=== PATIENT | male | born 1975 | race Caucasian/White ===

== ENCOUNTER 2017-01-17 15:19 | Observation (INO) | payer SELFPAY ==
[~2017-01-17] VITALS: Ht 188 cm; Wt 100.0 kg
[~2017-01-17 15:19] MED LIST: BACT800T5 PO; NICO21DI2 TD; PERC10TA27 PO
[2017-01-17 15:27] VITALS: BP 142/89; PULSE 112; RESP 20; TEMP 99.4; O2SAT 97
[2017-01-17] MEDS ORDERED: SODIUM CHLOR 0.9% 1000 ML INJ 1,000 ML IV ONE (15:27)
[2017-01-17 15:30] VITALS: O2SAT 97
[2017-01-17] MEDS ORDERED: SODIUM CHLORIDE 0.9% FLUSH 10 ML FLUSH IVF PRN (15:30)
--- NOTE | 2017-01-17 15:36 | PD ---
HPI Chief Complaint: seizure Time Seen by Provider: 15:29 Travel History International Travel<30 days: No Contact w/Intl Traveler<30days: No History of Present Illness HPI Patient comes in by EMS after reported witnessed seizure. 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 Patient was reported to be post ictal by EMS that has since resolved. Patient was found to have a temperature on seen of 101 and tachycardic on scene was given IV fluids by EMS. Patient denies any pain anywhere pre- or post reported seizure. Patient states he had something similar happen couple years ago after working out in the heat for to long. Patient denies ever seeing a neurologist for this. Denies any chest pain, shortness breath, headache, change in vision, nausea or tingling anywhere, abdominal pain, loss change in bowel or bladder, dizziness, or known fevers. PFSH Past Medical History Arthritis: No Asthma: No Autoimmune Disease: No Blood Disorders: No Anxiety: No Depression: No Heart Rhythm Problems: No Cancer: No Cardiovascular Problems: No High Cholesterol: No Chemotherapy: No Chest Pain: No Congestive Heart Failure: No COPD: No Cerebrovascular Accident: No Diabetes: No Diminished Hearing: No Endocrine: No Gastrointestinal Disorders: Yes GERD: Yes Glaucoma: No Genitourinary: No Headaches: No Hepatitis: No Hiatal Hernia: No Hypertension: Yes Immune Disorder: No Kidney Stones: No Musculoskeletal: Yes (HISTORY CHRONIC BACK/RIGHT LEG PAIN) Neurologic: No Reproductive: No Respiratory: No Migraines: No Myocardial Infarction: No Radiation Therapy: No Renal Failure: No Seizures: No Sickle Cell Disease: No Sleep Apnea: No Thyroid Disease: No Ulcer: No Past Surgical History Abdominal Surgery: No AICD: No Appendectomy: No Arteriovenous Shunt: No Body Medical Devices: plate in left thigh Cardiac Surgery: No Cholecystectomy: No Ear Surgery: No Endocrine Surgery: No Eye Surgery: No Genitourinary Surgery: No Gynecologic Surgery: No Insulin Pump: No Joint Replacement: No Neurologic Surgery: Yes (fx skull) Oral Surgery: Yes (teeth pulled) Pacemaker: No Thoracic Surgery: No Other Surgery: Yes Social History Alcohol Use: Yes (6 packper week) Tobacco Use: Yes (pack per week) Substance Use: No Allergies-Medications (Allergen,Severity, Reaction): Coded Allergies: No Known Allergies (Verified Allergy, Severe, 04/16/08) Reported Meds & Prescriptions Reported Meds & Active Scripts Active Nicotine Patch (Nicotine) 21 Mg/24 Hr Patch 1 Patch TD DAILY Bactrim DS (Sulfamethoxazole-Trimethoprim) 800-160 Mg Tab 1 Tab PO Q12HR Percocet (Oxycodone-Acetaminophen) 10-325 mg Tab 1 Tab PO Q4H PRN Review of Systems Except as stated in HPI: all other systems reviewed are Neg Physical Exam Narrative GENERAL: Well-developed, well nourished, in no acute distress, and non-ill appearing. SKIN: Focused skin assessment warm and dry. HEAD: Atraumatic. Normocephalic. EYES: Pupils equal and round. EOMI. No scleral icterus. No injection or drainage. ENT: No nasal bleeding or discharge. Mucous membranes pink and moist. NECK: Trachea midline. No JVD. Supple. No nuclear rigidity. CARDIOVASCULAR: Slightly tacky rate and regular rhythm. No murmur appreciated. RESPIRATORY: No accessory muscle use. No respiratory distress. Clear to auscultation. Breath sounds equal bilaterally. GASTROINTESTINAL: Abdomen soft, non-tender, nondistended. Hepatic and splenic margins not palpable. No pulsatile mass. MUSCULOSKELETAL: No obvious deformities. No clubbing. No cyanosis. No edema. Full range of motion. NEUROLOGICAL: Awake and alert. No obvious cranial nerve deficits. Motor grossly within normal limits. Normal speech. PSYCHIATRIC: Appropriate mood and affect; insight and judgment normal. Data Data Last Documented VS Vital Signs Date Time Temp Pulse Resp B/P Pulse Ox O2 Delivery O2 Flow Rate FiO2 01/17/17 15:30 97 01/17/17 15:27 99.4 112 20 142/89 Orders Complete Blood Count With Diff (01/17/17 15:27) Basic Metabolic Panel (Bmp) (01/17/17 15:27) Electrocardiogram (01/17/17 ) Ecg Monitoring (01/17/17 15:27) Iv Access Insert/Monitor (01/17/17 15:27) Oximetry (01/17/17 15:27) Sodium Chlor 0.9% 1000 Ml Inj (Ns 1000 M (01/17/17 15:27) Sodium Chloride 0.9% Flush (Ns Flush) (01/17/17 15:30) Magnesium (Mg) (01/17/17 15:27) Lactic Acid (5/8/17 15:30) Ct Brain W/O Iv Contrast(Rout) (01/17/17 ) Admit Order (Ed Use Only) (01/17/17 17:33) Labs Laboratory Tests Test 01/17/17 15:35 White Blood Count 6.3 TH/MM3 Red Blood Count 4.60 MIL/MM3 Hemoglobin 13.0 GM/DL Hematocrit 39.5 % Mean Corpuscular Volume 85.9 FL Mean Corpuscular Hemoglobin 28.3 PG Mean Corpuscular Hemoglobin 32.9 % Concent Red Cell Distribution Width 13.6 % Platelet Count 187 TH/MM3 Mean Platelet Volume 9.0 FL Neutrophils (%) (Auto) 60.7 % Lymphocytes (%) (Auto) 29.3 % Monocytes (%) (Auto) 8.5 % Eosinophils (%) (Auto) 0.5 % Basophils (%) (Auto) 1.0 % Neutrophils # (Auto) 3.8 TH/MM3 Lymphocytes # (Auto) 1.8 TH/MM3 Monocytes # (Auto) 0.5 TH/MM3 Eosinophils # (Auto) 0.0 TH/MM3 Basophils # (Auto) 0.1 TH/MM3 CBC Comment DIFF FINAL Differential Comment Sodium Level 141 MEQ/L Potassium Level 4.4 MEQ/L Chloride Level 107 MEQ/L Carbon Dioxide Level 22.2 MEQ/L Anion Gap 12 MEQ/L Blood Urea Nitrogen 18 MG/DL Creatinine 1.31 MG/DL Estimat Glomerular Filtration 61 ML/MIN Rate Random Glucose 156 MG/DL Lactic Acid Level 6.0 mmol/L Calcium Level 9.7 MG/DL Magnesium Level 2.1 MG/DL MDM Medical Decision Making Medical Screen Exam Complete: Yes Emergency Medical Condition: Yes Interpretation(s) EKG reviewed by Dr. Luu shows sinus tachycardia with a ventricular rate of 101. No STEMI. CT read by radiologist shows: Abnormal noncontrast axial head CT with an area of porencephaly or edema in the left orbital frontal region. MRI is suggested. This may be the remnants of previous head trauma given the history. Differential Diagnosis Seizures, electrolyte abnormality, mass, anemia, other Narrative Course Patient seen and examined. Initial laboratory and radiological studies were obtained and reviewed. Discussed all findings and plan of care with Dr. Luu, who recommended having patient placed in observation for further treatment and evaluation. Discussed all findings and plan care of patient, who is agreeable for admission. All questions were answered. Patient remained stable throughout ED course. Physician Communication Physician Communication [phone] Knox, who is agreeable to admit patient. Diagnosis Primary Impression: Seizure Admitting Information Admitting Physician Requests: Observation Condition: Stable Eze Mcnamara January 17, 2017 15:36
[2017-01-17 15:48] LABS: AUTOMATED NEUTROPHIL # 3.8 TH/MM3 (1.8-7.7); BASOPHIL # 0.1 TH/MM3 (0-0.2); EOSINOPHIL % 0.5 % (0.0-4.0); HEMATOCRIT 39.5 % (39.0-51.0); HEMO FLAGS DIFF FINAL; LYMPH % 29.3 % (9.0-44.0); LYMPHOCYTE # 1.8 TH/MM3 (1.0-4.8); MEAN CELL VOLUME 85.9 FL (80.0-100.0); MEAN CORPUSCULAR HEMOGLOBIN 28.3 PG (27.0-34.0); MEAN CORPUSCULAR HGB CONC 32.9 % (32.0-36.0); MONO % 8.5 % (0.0-8.0); NEUT % 60.7 % (16.0-70.0); PLATELET COUNT 187 TH/MM3 (150-450); RED CELL DISTRIBUTION WIDTH 13.6 % (11.6-17.2); WHITE BLOOD COUNT 6.3 TH/MM3 (4.0-11.0)
[2017-01-17 16:06] LABS: BICARBONATE 22.2 MEQ/L (21.0-32.0); MAGNESIUM 2.1 MG/DL (1.5-2.5); POTASSIUM 4.4 MEQ/L (3.5-5.1)
--- NOTE | 2017-01-17 17:04 | RADRPT ---
EXAM DATE/TIME: 01/17/2017 16:48 [facility] COMPARISON: No previous studies available for comparison. INDICATIONS : Seizures. RADIATION DOSE: 56.75 CTDIvol (mGy) MEDICAL HISTORY : Hypertension. Skull fracture. SURGICAL HISTORY : None. ENCOUNTER: Initial ACUITY: 1 day PAIN SCALE: 0/10 LOCATION: Cranial TECHNIQUE: Multiple contiguous axial images were obtained of the head. Using automated exposure control and adjustment of the mA and/or kV according to patient size, radiation dose was kept as low as reasonably achievable to obtain optimal diagnostic quality images. FINDINGS: This study is abnormal. There is an area of porencephaly in the left frontal lobe. Th e right hemisphere is unremarkable. Posterior fossa appears normal. There are no extra-axial fluid collections appreciated. CONCLUSION: Abnormal noncontrast axial head CT with an area of porencephaly or edema in the left orbital frontal region. MRI is suggested. This may be the remnants of previous head trauma given the history. Josef Rondon MD FACR on January 17, 2017 at 16:55 Board Certified Radiologist. This report was verified electronically.
[2017-01-17] MEDS ORDERED: ACETAMINOPHEN 325 MG TAB PO PRN (17:45)
[2017-01-17] MEDS ORDERED: DOCUSATE SODIUM 100 MG CAP PO PRN (17:45)
[2017-01-17] MEDS ORDERED: ONDANSETRON HCL 4 MG/2 ML VIAL IVP PRN (17:45)
[2017-01-17] MEDS ORDERED: SODIUM CHLORIDE 0.9% FLUSH 10 ML FLUSH IV FLUSH PRN (17:45)
[2017-01-17] MEDS ORDERED: LORazepam 2 MG/ML VIAL IV PUSH PRN (18:00)
--- NOTE | 2017-01-17 18:24 | HHI.HP ---
[facility] Service [facility] Primary Care Physician No Primary Care Physician Admission Diagnosis seizure Diagnoses: Chief Complaint: seizure Travel History International Travel<30 Days: No Contact w/Intl Traveler <30 Da: No Traveled to Known Affected Are: No Sepsis Criteria SIRS Criteria (2 or more): Temp > 100.9 or < 96.8, Heart rate over 90 Severe Sepsis (+one): Lactate >2 Septic Shock Criteria: Lactic acid >=4 Criteria Outcome: Meets SIRS criteria History of Present Illness 41-year-old male with history of IV drug use with morphine, chronic back pain, tobacco use, alcohol use, presents with seizure activity while at work today. The patient is very drowsy, only awakens with constant stimulation, answers with 1-2 word answers, then falls back asleep. Per PRIVACY COMPLIANCE MANAGER, the patient was more awake and alert upon his arrival, now much more drowsy. Per ER note, the patient was outside painting all day, then was taking a rest when coworkers noticed him to have seizure-like activity. [facility] was called, reportedly on the scene he had a temperature of 101 and was tachycardic, given IV fluid boluses. He told the ER PA that this has happened a few years ago after being outside in the heat. He denies any other prior seizure activity. Denies any tongue biting or bladder/bowel incontinence. 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 He states he might have been using a weed eater. Clearly the patient has paint all over his hands and jeans which is more consistent with his history given to the ER PA.The patient states he last used IV morphine one week ago and denies any other illicit drug use. He states he only drinks a few beers 23 times per week. He denies any chest pain or shortness of breath. Denies any abdominal pain, nausea/vomiting, or diarrhea/constipation. Denies any other medical complaints at this time. Review of Systems ROS Limitations: Altered Mental Status, Poor Historian Except as stated in HPI: all other systems reviewed are Neg Past Family Social History Past Medical History IV drug abuse with morphine Abscesses Skull fracture age 16 Chronic back pain Past Surgical History I&D abscess Reported Medications Denies taking any medications on a regular basis Allergies: Coded Allergies: No Known Allergies (Verified Allergy, Severe, 04/16/08) Active Ordered Medications Current Medications Medications (Trade) Dose Ordered Sig/Ani Route Start Time Stop Time Status Last Admin (NS 1000 ml Inj) 1,000 ml @ 100 mls/hr Q10H IV 01/17/17 18:00 (NS Flush) 2 ml UNSCH PRN IV FLUSH 01/17/17 17:45 UNV (NS Flush) 2 ml BID IV FLUSH 01/17/17 21:00 UNV (Zofran Inj) 4 mg Q6H PRN IVP 01/17/17 17:45 UNV (Colace) 100 mg Q12H PRN PO 01/17/17 17:45 UNV (Tylenol) 650 mg Q6H PRN PO 01/17/17 17:45 UNV (Ativan Inj) 1 mg Q15M PRN IV PUSH 01/17/17 18:00 UNV Family History Father with heart disease Social History Smokes tobacco 1 PPD Drinks alcohol, few beers 2-3x per week Uses IV drugs, injects morphine, last use 1 week ago Physical Exam Vital Signs Vital Signs Date Time Temp Pulse Resp B/P Pulse Ox O2 Delivery O2 Flow Rate FiO2 01/17/17 15:30 97 01/17/17 15:27 99.4 112 20 142/89 97 Physical Exam GENERAL: Well-nourished, well-developed middle aged male patient in [place] [facility]. Drowsy , awakens to loud voice or touch SKIN: Warm and dry. No rash. Left cheek with soft tissue swelling, fluctuance, with minimal overlying warmth/erythema. HEAD: Normocephalic. Atraumatic. EYES: Pupils equal and round. No scleral icterus. No injection or drainage. ENT: No nasal bleeding or discharge. Mucous membranes pink and moist. NECK: Supple. Trachea midline. CARDIOVASCULAR: Regular rate and rhythm. S1, S2 noted. No murmur appreciated. RESPIRATORY: No accessory muscle use. Clear to auscultation. Breath sounds equal bilaterally. GASTROINTESTINAL: Abdomen soft, non-tender, nondistended. Normoactive bowel sounds x4. MUSCULOSKELETAL: No obvious deformities. Extremities without clubbing, cyanosis , or edema. NEUROLOGICAL: Drowsy. No obvious cranial nerve deficits. Motor grossly within normal limits. Normal speech. PSYCHIATRIC: Appropriate mood and affect; insight and judgment normal. Laboratory Laboratory Tests Test 01/17/17 15:35 White Blood Count 6.3 Red Blood Count 4.60 Hemoglobin 13.0 Hematocrit 39.5 Mean Corpuscular Volume 85.9 Mean Corpuscular Hemoglobin 28.3 Mean Corpuscular Hemoglobin 32.9 Concent Red Cell Distribution Width 13.6 Platelet Count 187 Mean Platelet Volume 9.0 Neutrophils (%) (Auto) 60.7 Lymphocytes (%) (Auto) 29.3 Monocytes (%) (Auto) 8.5 Eosinophils (%) (Auto) 0.5 Basophils (%) (Auto) 1.0 Neutrophils # (Auto) 3.8 Lymphocytes # (Auto) 1.8 Monocytes # (Auto) 0.5 Eosinophils # (Auto) 0.0 Basophils # (Auto) 0.1 CBC Comment DIFF FINAL Differential Comment Sodium Level 141 Potassium Level 4.4 Chloride Level 107 Carbon Dioxide Level 22.2 Anion Gap 12 Blood Urea Nitrogen 18 Creatinine 1.31 Estimat Glomerular Filtration 61 Rate Random Glucose 156 Lactic Acid Level 6.0 Calcium Level 9.7 Magnesium Level 2.1 Result Diagram: 01/17/17 1535 01/17/17 1535 Assessment and Plan Problem List: (1) Seizure ICD Code: R56.9 Status: Acute (2) Lactic acidosis ICD Code: E87.2 Status: Acute (3) SIRS (systemic inflammatory response syndrome) ICD Code: R65.10 Status: Acute (4) JESSIE (acute kidney injury) ICD Code: N17.9 Status: Acute (5) IV drug abuse ICD Code: F19.10 Status: Acute Assessment and Plan 41-year-old male with history of IV drug use with morphine, chronic back pain, tobacco use, alcohol use, presents with seizure activity while at work today. Seizure: reported seizure activity while working outside, possible heat exhaustion vs intoxication vs infection. Per [facility], temp 101 and tachycardic upon their arrival, s/p IVF boluses. Head CT images reviewed, abnormal with area of porencephaly or edema left orbital frontal region; suggests MRI. Ordered brain MRI w/contrast. Continue neuro checks, seizure precautions, monitor on telemetry. Consult Neuro. Check EEG. Check UDS. IV Ativan prn seizure. Encephalopathy: unclear etiology, possibly postictal however reportedly patient more awake/alert upon arrival. Possibility of recent IVDU although patient states last use was 1 week ago, check UDS. Abnormal Head CT as above. Checking brain MRI. Neuro checks. Rule out ACS with serial cardiac enzymes and EKG. SIRS with Lactic Acidosis: possibly secondary to seizure, however need to rule out source of infection. Temp 101 by [facility], tachycardic HR 112. CXR images reviewed, unremarkable. Check blood cultures and UA. Give IVF NS at 150cc/hr. Repeat lactic acid. Possible Left Cheek Abscess vs Cyst: area of fluctuance at left cheek, possible abscess vs fluid filled cyst. Checking MRI facial soft tissue, will hopefully give further characteristics. No leukocytosis. JESSIE: Cr 1.31, previously 0.97 in Aug 2016. S/p IVF boluses. Continue IVF with NS at 150cc/hr. Repeat BMP in am. IV Drug Abuse: injects IV morphine, last use 1 week ago per the patient. Checking UDS. No narcotics. IV Narcan prn. Tobacco Use: will need to drug counselor on cessation when more awake/alert. Alcohol Use: reportedly drinks a few beers 2-3x per week. No signs of alcohol withdrawal. Monitor. DVT Prophylaxis: SCDs/teds Discussed with Dr. Knox. Discussed Condition With Patient, ER PA, PRIVACY COMPLIANCE MANAGER Attending Statement The exam, history, and the medical decision-making described in the above note were completed with the assistance of the mid-level provider. I reviewed and agree with the findings presented. I attest that I had a [id number] encounter with the patient on the same day, and personally performed and documented my assessment and findings in the medical record. Patient was very lethargic during the interview. He would not answer any my questions but did answer yes when I asked him he wanted to sleep. History taken from the EMR and from the ER physician. Gen NAD HEENT: no tongue biting noted. PERRLA. CV RRR. no r/m/g Resp CTA B/L Neuro: Patient moves his extremities grossly. A/P Questionable witnessed seizure Altered mental status History of recent IV drug use Mild renal insufficiency secondary to dehydration Will admit to observation. Labs reviewed. CT showed edema in the left frontal orbital. We'll get an EEG and MRI. We'll get a urine drug screen. Will hydrate with IV fluids. Seizure precautions. Continue to monitor clinically Natasha Luz PA-C January 17, 2017 18:24 Marilee Knox MD January 17, 2017 18:53
[2017-01-17] MEDS: SODIUM CHLOR 0.9% 1000 ML INJ 1,000 ML IV SCH (18:39)
[2017-01-17 18:40] VITALS: BP 134/74; PULSE 70; RESP 15; TEMP 98.3; O2SAT 97
[2017-01-17] MEDS ORDERED: NALOXONE HCL 0.4 MG/ML AMP IV PRN (18:45)
[2017-01-17 19:16] LABS: CREATINE KINASE 76 U/L (39-308)
[2017-01-17 20:41] VITALS: BP 131/75
[2017-01-17 21:38] LABS: BLOOD, URINE NEG (NEG); COMMENT (UR) CULT NOT INDICATED; CULTURE IF INDICATED CULT NOT INDICATED; GLUCOSE,URINE NEG (NEG); KETONE, URINE NEG (NEG); NITRITE,URINE NEG (NEG); URINE COLOR YELLOW (YELLW/STRAW)
[2017-01-17 21:42] LABS: AMPHETAMINE, URINE NEG (NEG); BARBITURATES, URINE NEG (NEG); COCAINE, URINE POS (NEG)
[2017-01-17] MEDS ORDERED: GADODIAMIDE PF 287 MG/ML 20 ML VIAL (for RAD MRI) IV ONE (21:54)
[2017-01-17] MEDS: SODIUM CHLORIDE 0.9% FLUSH 10 ML FLUSH IV FLUSH SCH (22:20)
--- NOTE | 2017-01-17 22:28 | RADRPT ---
EXAM DATE/TIME: 01/17/2017 21:13 [facility] COMPARISON: CT BRAIN W/O CONTRAST, January 17, 2017, 16:48. INDICATIONS : Seizures. CONTRAST: 20 cc Omniscan (gadodiamide) IV MEDICAL HISTORY : Hypertension. Gastroesophageal reflux disease. Seizures. TBI. SURGICAL HISTORY : Left leg. ENCOUNTER: Subsequent ACUITY: 1 day PAIN SCORE: 3/10 LOCATION: cranial TECHNIQUE: Multiplanar, multisequence MRI of the brain was performed both prior to and following the administrat ion of paramagnetic contrast. FINDINGS: Left orbitofrontal encephalomalacia is present. The brain is otherwise symmetric and unremarkable. Th ere is nothing to suggest acute infarction. No mass or hemorrhage is noted. There is no abnormal pare nchymal enhancement identified. Normal enhancement is present in the intracranial vascular structures . There is a circumscribed cutaneous/subcutaneous mass involving the left face. Extracranial structur es are otherwise unremarkable. 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 No acute intracranial findings. Vignesh Umaña MD on January 17, 2017 at 22:23 Board Certified Radiologist. This report was verified electronically.
--- NOTE | 2017-01-17 22:36 | RADRPT ---
EXAM DATE/TIME: 01/17/2017 21:13 [facility] COMPARISON: No previous studies available for comparison. INDICATIONS : Possible abscess, left cheek. CONTRAST: 20 cc Omniscan (gadodiamide) IV MEDICAL HISTORY : Hypertension. Gastroesophageal reflux disease. Seizures. TBI. SURGICAL HISTORY : Left leg. ENCOUNTER: Subsequent ACUITY: > 1 year PAIN SCORE: 0/10 LOCATION: facial TECHNIQUE: Multi-weighted, multi-axial MR images of the facial soft tissue both before and after the administrat ion of intravenous contrast. FINDINGS: Basilar less than 3 cm well circumscribed fluid signal mass is present in the subcutaneous tissues of the left cheek overlying the maxillary eminence region. Lesion has a benign appearance, likely a lisa aceous cyst. There is no surrounding induration or abnormal enhancement to suggest abscess as questio betazida. CONCLUSION: Likely sebaceous cyst in the left cheek Vignesh Umaña MD on January 17, 2017 at 22:32 Board Certified Radiologist. This report was verified electronically.
[2017-01-18] MEDS: SODIUM CHLOR 0.9% 1000 ML INJ 1,000 ML IV SCH ×3 (00:41→20:01)
[2017-01-18 01:58] VITALS: PULSE 56
[2017-01-18 02:12] LABS: CREATINE KINASE 243 U/L (39-308)
[2017-01-18 06:10] LABS: AUTOMATED NEUTROPHIL # 2.5 TH/MM3 (1.8-7.7); BASOPHIL % 0.6 % (0.0-2.0); EOSINOPHIL % 0.9 % (0.0-4.0); HEMATOCRIT 37.8 % (39.0-51.0); HEMO FLAGS DIFF FINAL; LYMPH % 43.7 % (9.0-44.0); LYMPHOCYTE # 2.4 TH/MM3 (1.0-4.8); MEAN CELL VOLUME 85.4 FL (80.0-100.0); MEAN CORPUSCULAR HEMOGLOBIN 28.7 PG (27.0-34.0); MEAN CORPUSCULAR HGB CONC 33.6 % (32.0-36.0); MONO % 9.1 % (0.0-8.0); NEUT % 45.7 % (16.0-70.0); PLATELET COUNT 172 TH/MM3 (150-450); RED BLOOD COUNT 4.43 MIL/MM3 (4.50-5.90); RED CELL DISTRIBUTION WIDTH 14.2 % (11.6-17.2); WHITE BLOOD COUNT 5.5 TH/MM3 (4.0-11.0)
[2017-01-18 06:39] LABS: ALKALINE PHOSPHATASE 57 U/L (45-117); ALT (GPT) 17 U/L (12-78); ANION GAP 6 MEQ/L (5-15); AST (GOT) 18 U/L (15-37); BICARBONATE 27.4 MEQ/L (21.0-32.0); BLOOD UREA NITROGEN 11 MG/DL (7-18); CHLORIDE 110 MEQ/L (98-107); GLOMERULAR FILTRATION RATE 97 ML/MIN (>89); POTASSIUM 3.8 MEQ/L (3.5-5.1); SODIUM (NA) 143 MEQ/L (136-145); TOTAL BILIRUBIN ADULT 0.3 MG/DL (0.2-1.0)
[2017-01-18 07:19] VITALS: BP 118/66; PULSE 64; RESP 14; TEMP 97.9; O2SAT 97
[2017-01-18 08:00] VITALS: PULSE 62
--- NOTE | 2017-01-18 08:52 | PD.CONS ---
History of Present Illness Service Neurology Consult Requested By medical Reason for Consult ronaldo Primary Care Physician No Primary Care Physician History of Present Illness 41-year-old male with history of IV drug use with morphine, chronic back pain, tobacco use, alcohol use, presents with seizure activity while at work today. pt unable to give description, no co-workers available. He states he might have been using a weed eater.The patient states he last used IV morphine one week ago to er staff. UDS + COCAINE glucose 156. mri brain, no acute lesion but old left frontal encephalomalacia. He denies any chest pain or shortness of breath. Denies any abdominal pain, nausea/vomiting, or diarrhea/constipation. Denies any other medical complaints at this time. no hx of sz. no family hx of sz's. DENIES ETOH USE TO ME. Review of Systems ROS Limitations: 10 point negative as above Past Family Social History Past Medical History IV drug abuse with morphine Abscesses Skull fracture age 16 Chronic back pain Past Surgical History I&D abscess Reported Medications Denies taking any medications on a regular basis Allergies: Coded Allergies: No Known Allergies (Verified Allergy, Severe, 04/16/08) Family History Father with heart disease Social History Smokes tobacco 1 PPD denies etoh use to me Uses IV drugs, injects morphine, last use 1 week ago Review of Systems All other ROS: ROS reviewed as documented in chart Past Family Social History Allergies: Coded Allergies: No Known Allergies (Verified Allergy, Severe, 04/16/08) Active Ordered Medications Current Medications Medications (Trade) Dose Ordered Sig/Ani Route Start Time Stop Time Status Last Admin (NS 1000 ml Inj) 1,000 ml @ 150 mls/hr Q6H40M IV 01/17/17 18:00 01/18/17 00:41 (NS Flush) 2 ml UNSCH PRN IV FLUSH 01/17/17 17:45 (NS Flush) 2 ml BID IV FLUSH 01/17/17 21:00 (Zofran Inj) 4 mg Q6H PRN IVP 01/17/17 17:45 (Colace) 100 mg Q12H PRN PO 01/17/17 17:45 (Tylenol) 650 mg Q6H PRN PO 01/17/17 17:45 (Ativan Inj) 1 mg Q15M PRN IV PUSH 01/17/17 18:00 (Narcan Inj) 0.4 mg UNSCH PRN IV 01/17/17 18:45 Exam I&O / VS 01/17/17 01/17/17 01/18/17 15:00 23:00 07:00 Output Total 800 ml Balance -800 ml Output Urine Total 800 ml # Voids 2 Vital Signs Date Time Temp Pulse Resp B/P Pulse Ox O2 Delivery O2 Flow Rate FiO2 01/18/17 07:19 97.9 64 14 118/66 97 01/18/17 01:58 56 01/17/17 20:41 99 20 131/75 98 01/17/17 18:40 98.3 70 15 134/74 97 Room Air 01/17/17 15:30 97 01/17/17 15:27 99.4 112 20 142/89 97 General: Alert and Oriented, No acute distress Eye: EOMI Respiratory: Non-labored respirations Musculoskeletal: ROM Neurologic: Alert, Oriented, Normal motor, No focal defects, CN II-XII intact, Normal DTR's Psychiatric: Cooperative Exam Comments alert, poor eye contact, ox 3, eomi, ou 3-2mm, left maxillary region growth- chronic and followed by md per pt, corey to gravity Review/Management Diagnosis/Plan: (1) Cocaine abuse Plan: stop illicit drug use (2) Seizure Plan: possible sz likely 2/2 cocaine. may be at lower threshold 2/2 old brain injury recs eeg stop illicit drug use. stay hydrated. if eeg abnormal (sharp waves, sz focus) would start keppra 500mg bid, although compliance is suspect no driving/climbing heights/swimming alone/operating any dangerous machinery sign off. call if questions Checo Mc MD January 18, 2017 08:52
--- NOTE | 2017-01-18 10:24 | HHI.PR ---
Subjective Remarks Follow up for seizure activity. The patient is more awake, alert, oriented x4 today. He denies any medical complaints. 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 Today he denies any headache, lightheadedness, dizziness , chest pain, shortness of breath, or abdominal complaints. He has no medical complaints at this time. Objective Vitals Vital Signs Date Time Temp Pulse Resp B/P Pulse Ox O2 Delivery O2 Flow Rate FiO2 01/18/17 08:00 62 01/18/17 07:19 97.9 64 14 118/66 97 01/18/17 01:58 56 01/17/17 20:41 99 20 131/75 98 01/17/17 18:40 98.3 70 15 134/74 97 Room Air 01/17/17 15:30 97 01/17/17 15:27 99.4 112 20 142/89 97 I/O 01/17/17 01/17/17 01/17/17 01/18/17 01/18/17 01/18/17 07:00 15:00 23:00 07:00 15:00 23:00 Output Total 800 ml Balance -800 ml Output Urine Total 800 ml # Voids 2 Result Diagram: 01/18/17 0533 01/18/17 0533 Imaging Last Impressions Face MRI 01/17/17 0000 Signed Impressions: Service Date/Time: Tuesday, January 17, 2017 21:13 - CONCLUSION: Likely sebaceous cyst in the left cheek Vignesh Umaña MD Brain MRI 01/17/17 0000 Signed Impressions: Service Date/Time: Tuesday, January 17, 2017 21:13 - CONCLUSION: Left orbitofrontal encephalomalacia, 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 No acute intracranial findings. Vignesh Umaña MD Objective Remarks GENERAL: Well-nourished, well-developed middle aged male patient in [facility]. SKIN: Warm and dry. No rash. Sebaceous cyst left cheek, no overlying warmth/ erythema, nontender. HEENT: Normocephalic. Atraumatic. Pupils equal and round. Mucous membranes pink and moist. NECK: Supple. Trachea midline. CARDIOVASCULAR: Regular rate and rhythm. S1, S2 noted. No murmur appreciated. RESPIRATORY: No accessory muscle use. Clear to auscultation. Breath sounds equal bilaterally. GASTROINTESTINAL: Abdomen soft, non-tender, nondistended. Normoactive bowel sounds x4. MUSCULOSKELETAL: No obvious deformities. Extremities without clubbing, cyanosis , or edema. NEUROLOGICAL: Awake and alert. No obvious cranial nerve deficits. Motor grossly within normal limits. Normal speech. PSYCHIATRIC: Appropriate mood and affect; insight and judgment normal. Medications and IVs Current Medications Medications (Trade) Dose Ordered Sig/Ani Route Start Time Stop Time Status Last Admin (NS 1000 ml Inj) 1,000 ml @ 150 mls/hr [id number] IV 01/17/17 18:00 01/18/17 00:41 (NS Flush) 2 ml UNSCH PRN IV FLUSH 01/17/17 17:45 (NS Flush) 2 ml BID IV FLUSH 01/17/17 21:00 (Zofran Inj) 4 mg Q6H PRN IVP 01/17/17 17:45 (Colace) 100 mg Q12H PRN PO 01/17/17 17:45 (Tylenol) 650 mg Q6H PRN PO 01/17/17 17:45 (Ativan Inj) 1 mg Q15M PRN IV PUSH 01/17/17 18:00 (Narcan Inj) 0.4 mg UNSCH PRN IV 01/17/17 18:45 A/P Problem List: (1) Seizure ICD Code: R56.9 Status: Acute (2) Lactic acidosis ICD Code: E87.2 Status: Acute (3) SIRS (systemic inflammatory response syndrome) ICD Code: R65.10 Status: Acute (4) JESSIE (acute kidney injury) ICD Code: N17.9 Status: Acute (5) IV drug abuse ICD Code: F19.10 Status: Acute Assessment and Plan 41-year-old male with history of IV drug use with morphine, chronic back pain, tobacco use, alcohol use, presents with seizure activity while at work today. Seizure: reported seizure activity while working outside, possible heat exhaustion vs intoxication vs infection. Per EVAC, temp 101 and tachycardic upon their arrival, s/p IVF boluses. UDS positive for cocaine, cannabinoids, opiates. Head CT images reviewed, abnormal with area of porencephaly or edema left orbital frontal region. Brain MRI w/contrast shows left orbitofrontal encephalomalacia, 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 Continue neuro checks, seizure precautions, monitor on telemetry. Consult Neuro. Check EEG, if negative, ok to discharge per neuro. IV Ativan prn seizure. Toxic Encephalopathy: unclear etiology, possibly postictal however reportedly patient more awake/alert upon arrival, suspect polysubstance use. Possibility of recent IVDU although patient states last use was 1 week ago, UDS positive for cocaine, cannabinoids, and opiates. Brain imaging unremarkable for acute findings as above. Neuro checks. ACS ruled out with negative serial cardiac enzymes and EKG without acute ischemic changes. SIRS with Lactic Acidosis: possibly secondary to seizure, however need to rule out source of infection. Temp 101 by EVAC, tachycardic HR 112. CXR images reviewed, unremarkable. Blood cultures pending. UA negative. Given IVF NS at 150cc/hr. Repeat lactic acid 0.9. Resolved. Left Cheek Sebaceous Cyst: area of fluctuance at left cheek, possible abscess vs fluid filled cyst. No leukocytosis. MRI facial soft tissue confirmed sebaceous cyst, recommended outpatient f/up with surgeon. JESSIE: Cr 1.31, previously 0.97 in Aug 2016. S/p IVF boluses. Continue IVF with NS at 150cc/hr. Repeat BMP shows improvement with Cr 0.87. Resolved. IV Drug Abuse: injects IV morphine, last use 1 week ago per the patient. UDS + cocaine/cannabinoids/opiates. No narcotics. IV Narcan prn. Tobacco Use: counseled on cessation. Alcohol Use: reportedly drinks a few beers 2-3x per week. No signs of alcohol withdrawal. Monitor. DVT Prophylaxis: SCDs/teds Discharge Planning Likely discharge today if EEG negative. Attending Statement The exam, history, and the medical decision-making described in the above note were completed with the assistance of the mid-level provider. I reviewed and agree with the findings presented. I attest that I had a [id number] encounter with the patient on the same day, and personally performed and documented my assessment and findings in the medical record. Patient has no complaints. he is asking to sleep. No seizure activity noted during admission. Gen NAD CV RRR. no r/m/g resp CTA B/L Abd soft NDNT Neuro: Due to patient being tired he would not actively participate in the physical exam. Patient is moving his limbs grossly. Altered mental status -Most likely secondary to cocaine use. -Neurologist consulted appreciate recommendations. -MRI is negative for any lesions or acute process. -Patient has been stable since admission. -Pending EEG results in order for patient to be discharge. Natasha Luz PA-C January 18, 2017 10:24 Marilee Knox MD January 18, 2017 17:03
[2017-01-18 11:43] VITALS: BP 118/68; PULSE 63; RESP 16; TEMP 98.5; O2SAT 96
[2017-01-18] MEDS: SODIUM CHLORIDE 0.9% FLUSH 10 ML FLUSH IV FLUSH SCH ×2 (15:15→20:01)
[2017-01-18 15:31] VITALS: BP 126/75; PULSE 62; RESP 16; TEMP 98; O2SAT 95
--- NOTE | 2017-01-18 15:37 | EKG ---
Date Performed: 01/17/2017 Time Performed: 15:37:27 PTAGE: 41 years EKG: SINUS TACHYCARDIA ABNORMAL RHYTHM ECG Compared to prior tracing no significant change PREVIOUS TRACING : 04/16/2008 12.04 DOCTOR: Felix Melendez Interpretating Date/Time 01/18/2017 15:34:39
--- NOTE | 2017-01-18 15:37 | EKG ---
Date Performed: 01/18/2017 Time Performed: 00:48:40 PTAGE: 41 years EKG: SINUS BRADYCARDIA MODERATE INTRAVENTRICULAR CONDUCTION DELAY Compared to prior tracing no s ignificant change BORDERLINE ECG PREVIOUS TRACING : 01/17/2017 15.37 DOCTOR: Felix Melendez Interpretating Date/Time 01/18/2017 15:34:47
--- NOTE | 2017-01-18 17:00 | MG ---
cc: TREY SANTILLAN M.D. Lab No: Date: 01/18/2017 Age: Sex: M Race: DATE OF 1975, 41 years. ELECTROENCEPHALOGRAM NUMBER [id number] REFERRING PHYSICIAN SENA Milian ROOM F63 With hyperventilation, photic stimulation good effort. Awake. Positive for opiates, cocaine, cannabinoids. MRI shows a left orbital frontal encephalomalacia likely from an old injury. No acute findings otherwise. The patient apparently had a witnessed seizure. Postictal when EMS arrived. He has a history of head trauma, skull fracture, alcohol and substance abuse. MEDICATIONS No medications are listed. DESCRIPTION OF RECORD The patient has what looks like phase reversals over the right central temporal region as well some sharp waves seen bilaterally. He has photic stimulation and there is a driving response but sharp waves continue. The sharps are bilateral. Paroxysmal. Hyperventilation was performed. There were occasional sharp waves during that portion as well and continue post hyperventilation. IMPRESSION Abnormal EEG due to diffuse bilateral sharps consistent with epileptic potential and/or active seizure-like activity, possible depending on the patient's exam, clinical history. Clinical correlation. MD SUNDEEP Bishop/ESTHER /4:12 PM /4:38 PM
[2017-01-18 23:45] VITALS: PULSE 46
[2017-01-19 00:07] VITALS: BP 135/80; PULSE 62; RESP 20; TEMP 96.4; O2SAT 96
[2017-01-19] MEDS: SODIUM CHLOR 0.9% 1000 ML INJ 1,000 ML IV SCH ×2 (03:21→15:55)
[2017-01-19 04:27] VITALS: BP 129/85; PULSE 59; RESP 20; TEMP 96.4; O2SAT 96
[2017-01-19 07:07] VITALS: PULSE 50
[2017-01-19 07:22] VITALS: BP 132/82; PULSE 60; RESP 16; TEMP 97.6; O2SAT 97
--- NOTE | 2017-01-19 07:55 | HHI.PR ---
Review/Management Diagnosis/Plan: (1) Seizure Plan: sz eeg + likely 2/2 cocaine. may be at lower threshold 2/2 old brain injury recs eeg + agree with keppra give depakote and ativan x 1 repeat eeg later today stop illicit drug use. stay hydrated. d/c planning for tomorrow no driving/climbing heights/swimming alone/operating any dangerous machinery discussed above with pt (2) Cocaine abuse Plan: stop illicit drug use Subjective Subjective Comments No acute events reported No headache no sz activity No chest pain No dyspnea Active Medications Current Medications Medications (Trade) Dose Ordered Sig/Ani Route Start Time Stop Time Status Last Admin (NS 1000 ml Inj) 1,000 ml @ 70 mls/hr [id number] IV 01/17/17 18:00 01/18/17 15:15 (NS Flush) 2 ml UNSCH PRN IV FLUSH 01/17/17 17:45 (NS Flush) 2 ml BID IV FLUSH 01/17/17 21:00 01/18/17 15:15 (Zofran Inj) 4 mg Q6H PRN IVP 01/17/17 17:45 (Colace) 100 mg Q12H PRN PO 01/17/17 17:45 (Tylenol) 650 mg Q6H PRN PO 01/17/17 17:45 (Ativan Inj) 1 mg Q15M PRN IV PUSH 01/17/17 18:00 (Narcan Inj) 0.4 mg UNSCH PRN IV 01/17/17 18:45 (Keppra) 500 mg Q12HR PO 01/19/17 09:00 Allergies Allergies Coded Allergies No Known Allergies (Verified Allergy, Severe, 04/16/08) Review of Systems All other ROS: ROS reviewed as documented in chart Exam I&O / VS 01/18/17 01/18/17 01/19/17 15:00 23:00 07:00 Intake Total 480 ml Balance 480 ml Intake Oral 480 ml # Voids 1 Vital Signs Date Time Temp Pulse Resp B/P Pulse Ox O2 Delivery O2 Flow Rate FiO2 01/19/17 07:22 97.6 60 16 132/82 97 01/19/17 04:27 96.4 59 20 129/85 96 01/19/17 00:07 96.4 62 20 135/80 96 01/18/17 23:45 46 01/18/17 15:31 98.0 62 16 126/75 95 01/18/17 11:43 98.5 63 16 118/68 96 01/18/17 08:00 62 General: Alert and Oriented, No acute distress Eye: EOMI Respiratory: Non-labored respirations Musculoskeletal: ROM Neurologic: Alert, Oriented, Normal motor, No focal defects, CN II-XII intact, Normal DTR's Psychiatric: Cooperative Exam Comments alert, better eye contact, ox 3, follows, remembers seeing me yesterday am, no involuntary movements, eomi, ou 3-2mm, left maxillary region growth- chronic and followed by md per pt, nicole to gravity Objective Micro and Labs Date/Time Procedure Status Source Growth 01/17/17 20:48 Aerobic Blood Culture - Preliminary Resulted Blood Peripheral NO GROWTH IN 1 DAY 01/17/17 20:48 Anaerobic Blood Culture - Preliminary Resulted Blood Peripheral NO GROWTH IN 1 DAY Checo Mc MD January 19, 2017 07:55
[2017-01-19] MEDS ORDERED: LORazepam 2 MG/ML VIAL IV PUSH PRN (08:00)
[2017-01-19] MEDS: DIVALPROEX SODIUM E.R. 500 MG TAB PO SCH ×2 (08:55→09:00)
[2017-01-19] MEDS: levETIRAcetam 500 MG TAB PO SCH ×2 (08:56→09:00)
[2017-01-19] MEDS: SODIUM CHLORIDE 0.9% FLUSH 10 ML FLUSH IV FLUSH SCH (08:56)
[2017-01-19] MEDS ORDERED: levETIRAcetam 500 MG TAB PO SCH (09:00)
--- NOTE | 2017-01-19 10:00 | HHI.PR ---
Subjective Remarks Follow up seizure activity. Patient denies any seizure activity, dizziness, cp or sob. Advised patient to stop all recreational drugs to avoid future seizures. Patient states he only has seizures when he smokes marijuana and yesterday he smoked prior to having a seizure. Encouraged him to refrain and follow up out patient to continue seizure medication. Objective Vitals Vital Signs Date Time Temp Pulse Resp B/P Pulse Ox O2 Delivery O2 Flow Rate FiO2 01/19/17 07:22 97.6 60 16 132/82 97 01/19/17 04:27 96.4 59 20 129/85 96 01/19/17 00:07 96.4 62 20 135/80 96 01/18/17 23:45 46 01/18/17 15:31 98.0 62 16 126/75 95 01/18/17 11:43 98.5 63 16 118/68 96 I/O 01/18/17 01/18/17 01/18/17 01/19/17 01/19/17 01/19/17 07:00 15:00 23:00 07:00 15:00 23:00 Intake Total 480 ml Balance 480 ml Intake Oral 480 ml # Voids 1 Result Diagram: 01/18/17 0533 01/18/17 0533 Imaging Last Impressions Face MRI 01/17/17 0000 Signed Impressions: Service Date/Time: Tuesday, January 17, 2017 21:13 - CONCLUSION: Likely sebaceous cyst in the left cheek Vignesh Umaña MD Brain MRI 01/17/17 0000 Signed Impressions: Service Date/Time: Tuesday, January 17, 2017 21:13 - CONCLUSION: Left orbitofrontal encephalomalacia, 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 No acute intracranial findings. Vignehs Umaña MD Objective Remarks GENERAL: Well nourished patient, sitting up eating breakfast SKIN: Warm and dry. Sebaceous cyst left cheek, no warmth or erythema, non tender HEAD: Atraumatic. Normocephalic. EYES: Pupils equal and round. No scleral icterus. ENT: No nasal bleeding or discharge. NECK: Trachea midline. No JVD. CARDIOVASCULAR: Regular rate and rhythm. RESPIRATORY: No accessory muscle use. Clear to auscultation. Breath sounds equal bilaterally. GASTROINTESTINAL: Abdomen soft, non-tender, nondistended. Hepatic and splenic margins not palpable. MUSCULOSKELETAL: Extremities without clubbing, cyanosis, or edema. No obvious deformities. NEUROLOGICAL: Awake and alert. No obvious cranial nerve deficits. Motor grossly within normal limits. Normal speech. PSYCHIATRIC: Appropriate mood and affect; insight and judgment normal. Medications and IVs Current Medications Medications (Trade) Dose Ordered Sig/Ani Route Start Time Stop Time Status Last Admin (NS 1000 ml Inj) 1,000 ml @ 70 mls/hr [id number] IV 01/17/17 18:00 01/18/17 15:15 (NS Flush) 2 ml UNSCH PRN IV FLUSH 01/17/17 17:45 (NS Flush) 2 ml BID IV FLUSH 01/17/17 21:00 01/19/17 08:56 (Zofran Inj) 4 mg Q6H PRN IVP 01/17/17 17:45 (Colace) 100 mg Q12H PRN PO 01/17/17 17:45 (Tylenol) 650 mg Q6H PRN PO 01/17/17 17:45 (Narcan Inj) 0.4 mg UNSCH PRN IV 01/17/17 18:45 (Ativan Inj) 1 mg Q15M PRN IV PUSH 01/19/17 08:00 (Depakote Er) 500 mg DAILY PO 01/19/17 08:00 01/19/17 08:55 (Keppra) 500 mg Q12HR PO 01/19/17 08:00 01/19/17 08:56 A/P Problem List: (1) Seizure ICD Code: R56.9 Status: Acute (2) Lactic acidosis ICD Code: E87.2 Status: Acute (3) SIRS (systemic inflammatory response syndrome) ICD Code: R65.10 Status: Acute (4) JESSIE (acute kidney injury) ICD Code: N17.9 Status: Acute (5) IV drug abuse ICD Code: F19.10 Status: Acute Assessment and Plan 41-year-old male with history of IV drug use with morphine, chronic back pain, tobacco use, alcohol use, presents with seizure activity while at work today. Seizure: reported seizure activity while working outside, possible heat exhaustion vs intoxication vs infection. Per EVAC, temp 101 and tachycardic upon their arrival, s/p IVF boluses. UDS positive for cocaine, cannabinoids, opiates. Head CT images reviewed, abnormal with area of porencephaly or edema left orbital frontal region. Brain MRI w/contrast shows left orbitofrontal encephalomalacia, 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 Continue neuro checks, seizure precautions, monitor on telemetry. Consult Neuro. Neuro recommends Keppra 500mg BID and Depakote 500mg BID. Recheck EEG pending, if negative, ok to discharge per neuro. IV Ativan prn seizure. Toxic Encephalopathy: unclear etiology, possibly postictal however reportedly patient more awake/alert upon arrival, suspect polysubstance use. Possibility of recent IVDU although patient states last use was 1 week ago, UDS positive for cocaine, cannabinoids, and opiates. Brain imaging unremarkable for acute findings as above. Neuro checks. ACS ruled out with negative serial cardiac enzymes and EKG without acute ischemic changes. SIRS with Lactic Acidosis: possibly secondary to seizure, however need to rule out source of infection. Temp 101 by EVAC, tachycardic HR 112. CXR images reviewed, unremarkable. Blood cultures pending. UA negative. Given IVF NS at 150cc/hr. Repeat lactic acid 0.9. Resolved. Left Cheek Sebaceous Cyst: area of fluctuance at left cheek, possible abscess vs fluid filled cyst. No leukocytosis. MRI facial soft tissue confirmed sebaceous cyst, recommended outpatient f/up with surgeon. JESSIE: Cr 1.31, previously 0.97 in Aug 2016. S/p IVF boluses. Continue IVF with NS at 150cc/hr. Repeat BMP shows improvement with Cr 0.87. Resolved. IV Drug Abuse: injects IV morphine, last use 1 week ago per the patient. UDS + cocaine/cannabinoids/opiates. No narcotics. IV Narcan prn. Tobacco Use: counseled on cessation. Alcohol Use: reportedly drinks a few beers 2-3x per week. No signs of alcohol withdrawal. Monitor. Substance abuse: Encouraged to refrain form marijuana and cocaine use as it will lower seizure threshold. DVT prophylaxis: SCDs Discharge Planning Possible DC tomorrow pending EEG results Attending Statement patient eloped because of this I was not able to examine the patient. Yee Rico January 19, 2017 10:00 Marilee Knox MD January 23, 2017 23:08
[2017-01-19 11:20] VITALS: BP 128/71; PULSE 64; RESP 16; TEMP 98
--- NOTE | 2017-01-19 12:10 | MG ---
cc: KAL CAMARILLO MD, DALIA M.D. Lab No: [id number] Date: 01/19/2017 Age: 41 Sex: M Hyperventilation. Photic stimulation. This is a repeat study. He was given his first dose of Keppra and Depakote at 9 o'clock in the morning. Fair hypoventilatory effort. 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 EEG yesterday showed sharps bilaterally. DESCRIPTION OF RECORD The patient has some mild slowing, predominately 6.5 to 7 Hz. Still has some sharp waves seen bilaterally. Photic stimulation with sharps and driving response seen. Hyperventilation is performed with fair effort, still some sharp waves noted bilaterally. IMPRESSION Abnormal EEG due to sharp waves that are paroxysmal in this recording, still consistent with a possible epileptic focus in this patient. He just started his dose of antiepileptics this morning, Keppra and Depakote. Therapeutic levels need to be monitored. Clinical correlation. MD SUNDEEP Bishop/EMY /11:45 AM /12:01 PM
[2017-01-19 15:30] VITALS: BP 127/82; PULSE 67; RESP 18; TEMP 98.6; O2SAT 97
[2017-01-19] MEDS ORDERED: DEPA500T3 PO (21:11)
[2017-01-19] MEDS ORDERED: LEVE500 PO (21:11)
== END 2017-01-19 23:57 | disposition home or self-care (01) ==
LOC: NEPE 15:19 → NEDA 17:35 → NEPFCDU 21:09
PROVIDERS: ADMIT Family Medicine; ATTEND Family Medicine
DX: R56.9 Unspecified convulsions (principal); N17.9 Acute kidney failure, unspecified; G92 Toxic encephalopathy; R65.10 Systemic inflammatory response syndrome (SIRS) of non-infectious origin without acute organ dysfunction; E86.0 Dehydration; L72.3 Sebaceous cyst; F11.10 Opioid abuse, uncomplicated; F14.10 Cocaine abuse, uncomplicated; F12.90 Cannabis use, unspecified, uncomplicated; K21.9 Gastro-esophageal reflux disease without esophagitis; I10 Essential (primary) hypertension; M54.9 Dorsalgia, unspecified; G89.29 Other chronic pain; E87.2 Acidosis; F17.200 Nicotine dependence, unspecified, uncomplicated
CPT/HCPCS: 70450; 70543; 70553; 76937; 80048; 80053; 80307; 81001; 82550; 83605; 83735; 84484; 85025; 87040; 93005; 95819; 99285; A9579; G0378; J7030

== ENCOUNTER 2017-01-19 19:11 | Emergency (ER) | payer SELFPAY ==
[~2017-01-19] VITALS: Ht 188 cm; Wt 98.0 kg
[2017-01-19 19:13] VITALS: BP 187/109; PULSE 110; RESP 15; TEMP 99.4; O2SAT 97
--- NOTE | 2017-01-19 21:03 | PD ---
HPI Chief Complaint: Seizure Time Seen by Provider: 20:48 Travel History International Travel<30 days: No Contact w/Intl Traveler<30days: No Traveled to known affect area: No History of Present Illness HPI 41-year-old male with 10 year history of IV opiate abuse. He presents for evaluation. The patient was admitted on Tuesday after having a witnessed seizure. He underwent MRI of the brain revealing left orbital frontal encephalomalacia likely from old injury with no acute findings. He underwent 2 EEGs, most recently today, revealing sharp waves other paroxysmal on this recording, still consistent with possible epileptic focus. The neurologist recommended starting Keppra and Depakote. He was started on these antiepileptics this morning. 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 He now presents today because he "doesn't want any loose ends" in regards to his care. He admits to frequent IV abuse. He believes that he had a seizure because he smoked marijuana on Tuesday. He reports that he had one previous seizure 2 years ago after smoking marijuana, no other history of seizures. He does also admit to injecting IV cocaine 3 or 4 days ago. Denies any drug use today. Denies any recent illness. He currently feels normal. He would prefer to go home because he has to work tomorrow. He has no other complaints. PFSH Past Medical History Arthritis: No Asthma: No Autoimmune Disease: No Blood Disorders: No Anxiety: No Depression: No Heart Rhythm Problems: No Cancer: No Cardiovascular Problems: Yes (HTN) High Cholesterol: No Chemotherapy: No Chest Pain: No Congestive Heart Failure: No COPD: No Cerebrovascular Accident: No Diabetes: No Diminished Hearing: No Endocrine: No Gastrointestinal Disorders: Yes GERD: Yes Glaucoma: No Genitourinary: No Headaches: No Hepatitis: No Hiatal Hernia: No Hypertension: Yes Immune Disorder: No Implanted Vascular Access Dvce: Yes Kidney Stones: No Musculoskeletal: Yes (HISTORY CHRONIC BACK/RIGHT LEG PAIN) Neurologic: No Psychiatric: No Reproductive: No Respiratory: No Migraines: No Myocardial Infarction: No Radiation Therapy: No Renal Failure: No Seizures: No Sickle Cell Disease: No Sleep Apnea: No Thyroid Disease: No Ulcer: No Influenza Vaccination: No Past Surgical History Abdominal Surgery: No AICD: No Appendectomy: No Arteriovenous Shunt: No Body Medical Devices: plate in left thigh Cardiac Surgery: No Cholecystectomy: No Ear Surgery: No Endocrine Surgery: No Eye Surgery: No Genitourinary Surgery: No Gynecologic Surgery: No Insulin Pump: No Joint Replacement: No Neurologic Surgery: Yes (fx skull) Oral Surgery: Yes (teeth pulled) Pacemaker: No Thoracic Surgery: No Other Surgery: Yes Social History Alcohol Use: Yes (6 pack per week) Tobacco Use: Yes (1 PPD) Substance Use: Yes (MORPHINE) Allergies-Medications (Allergen,Severity, Reaction): Coded Allergies: No Known Allergies (Verified , 01/19/17) Reported Meds & Prescriptions Reported Meds & Active Scripts Active Keppra (Levetiracetam) 500 Mg Tab 500 Mg PO BID Depakote ER (Divalproex Sodium) 500 Mg James 500 Mg PO DAILY Review of Systems Except as stated in HPI: all other systems reviewed are Neg Physical Exam Narrative GENERAL: Well-developed well-nourished male in no acute distress SKIN: Warm and dry. Cystic structure Noted on the left cheek. Tract reis noted arms. HEAD: Atraumatic. Normocephalic. EYES: Pupils equal and round. No scleral icterus. No injection or drainage. ENT: No nasal bleeding or discharge. Mucous membranes pink and moist. NECK: Trachea midline. No JVD. CARDIOVASCULAR: Regular rate and rhythm. No murmur appreciated. RESPIRATORY: No accessory muscle use. Clear to auscultation. Breath sounds equal bilaterally. GASTROINTESTINAL: Abdomen soft, non-tender, nondistended. Hepatic and splenic margins not palpable. MUSCULOSKELETAL: No obvious deformities. NEUROLOGICAL: Awake and alert. No obvious cranial nerve deficits. Motor grossly within normal limits. Normal speech. PSYCHIATRIC: Appropriate mood and affect; insight and judgment normal. Data Data Last Documented VS Vital Signs Date Time Temp Pulse Resp B/P Pulse Ox O2 Delivery O2 Flow Rate FiO2 01/19/17 19:13 99.4 110 15 187/109 97 Room Air Orders Levetiracetam (Keppra) (01/19/17 21:15) [facility] Medical Decision Making Medical Screen Exam Complete: Yes Emergency Medical Condition: Yes Medical Record Reviewed: Yes Differential Diagnosis Noncompliance, IV drug abuse, epilepsy, intracranial mass Narrative Course 41-year-old male with seizure 2 days ago presents after having left ama. He wanted to follow-up on his hospital stay. He does not want to be admitted because he wants to work tomorrow. It was offered to readmit the patient for observation but he is declining. His most recent EEG does suggest some paroxysmal sharp waves consistent with possible epileptic focus and it was recommended that he start on Depakote and Keppra which she started this morning. It appears that he was receiving 500 mg of Depakote daily and Keppra 500 mg twice a day. Blood cultures are negative. No leukocytosis. Mildly tachycardic likely secondary to opiate withdrawal. Urine drug screen was positive for cannabinoids, cocaine and opiates consistent with his history. The plan will be to discharge the patient with 30 day supply of Depakote extended release 500 mg daily as well as Keppra 500 mg twice a day, suggest outpatient follow-up with a neurologist that he saw here. He will be given information on patient's assistance that he can apply for outpatient primary care follow-up purposes. He understands that he can return here for any new or worsening symptoms. He is stable for discharge. Diagnosis Primary Impression: Seizure Referrals: Checo Mc MD Primary Care Physician Additional Instructions: Medication as prescribed. Avoid illicit drug use. Follow-up with neurologist such as Dr. Waddell in one week, call to make an appointment. Follow-up with primary Care physician. Return for any acutely new or worsening symptoms. Med/Other Pt SpecificInfo: Prescription(s) given Scripts Levetiracetam (Keppra)500 Mg [id number] Mg PO BID #60 TAB Ref 0 Prov:Pavithra Pascual MD 01/19/17 Divalproex ER (Depakote ER)500 Mg [id number] Mg PO DAILY #30 TAB Ref 0 Prov:Pavithra Pascual MD 01/19/17 Disposition: 01 DISCHARGE HOME Condition: Stable Wilbert Garcia January 19, 2017 21:03
[2017-01-19] MEDS ORDERED: LEVE500 PO (21:11)
[2017-01-19] MEDS ORDERED: DEPA500T3 PO (21:11)
[2017-01-19] MEDS ORDERED: levETIRAcetam 500 MG TAB PO ONE (21:15)
== END 2017-01-19 21:37 | disposition home or self-care (01) ==
LOC: NEPD 19:11
DX: R56.9 Unspecified convulsions (principal); I10 Essential (primary) hypertension; K21.9 Gastro-esophageal reflux disease without esophagitis; F17.210 Nicotine dependence, cigarettes, uncomplicated; R00.0 Tachycardia, unspecified
CPT/HCPCS: 99283

== ENCOUNTER 2018-02-07 21:22 | Emergency (ER) | payer SELFPAY ==
[~2018-02-07 21:22] MED LIST changes: -BACT800T5 PO; +DEPA500T3 PO; +LEVE500 PO; -NICO21DI2 TD; -PERC10TA27 PO
[2018-02-07 21:26] VITALS: BP 186/110; PULSE 96; RESP 16; TEMP 99.2; O2SAT 100
[2018-02-07] MEDS ORDERED: IOHEXOL 350 MG/ML 10 ML VIAL (for RAD DIAG) IVCONTRAST ONE (23:00)
[2018-02-07] MEDS ORDERED: CLINDAMYCIN 600 MG/NS PREMIX 50 ML IV ONE (23:00)
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
[2018-02-07 23:18] LABS: AUTOMATED NEUTROPHIL # 6.1 TH/MM3 (1.8-7.7); BASOPHIL % 0.5 % (0.0-2.0); EOSINOPHIL # 0.1 TH/MM3 (0-0.4); EOSINOPHIL % 1.1 % (0.0-4.0); HEMATOCRIT 42.3 % (39.0-51.0); HEMOGLOBIN 14.6 GM/DL (13.0-17.0); LYMPH % 23.1 % (9.0-44.0); LYMPHOCYTE # 2.1 TH/MM3 (1.0-4.8); MEAN CELL VOLUME 87.1 FL (80.0-100.0); MEAN CORPUSCULAR HEMOGLOBIN 30.1 PG (27.0-34.0); MEAN CORPUSCULAR HGB CONC 34.5 % (32.0-36.0); MEAN PLATELET VOLUME 8.5 FL (7.0-11.0); MONO % 8.2 % (0.0-8.0); MONOCYTE # 0.7 TH/MM3 (0-0.9); NEUT % 67.1 % (16.0-70.0); PLATELET COUNT 192 TH/MM3 (150-450); RED BLOOD COUNT 4.86 MIL/MM3 (4.50-5.90); RED CELL DISTRIBUTION WIDTH 14.3 % (11.6-17.2)
--- NOTE | 2018-02-07 23:28 | RADRPT ---
EXAM DATE: 02/07/2018 11:22 PM EDT AGE/SEX: 42 years / Male INDICATIONS: Skin complaint, pain in knee. CLINICAL DATA: This is the patient's initial encounter. Patient reports that signs and symptoms have been present for 1 day and indicates a pain score of 8/10. MEDICAL/SURGICAL HISTORY: None. None. COMPARISON: No prior exams available for comparison. FINDINGS: No definite fractures, or dislocations are identified. No definite lytic or sclerotic lesion is seen . The joint spaces are well maintained. CONCLUSION: Unremarkable study. Electronically signed by: Harini Pandya MD 02/07/2018 11:27 PM EDT
--- NOTE | 2018-02-07 23:28 | RADRPT ---
EXAM DATE: 02/07/2018 11:25 PM EDT AGE/SEX: 42 years / Male INDICATIONS: Skin complaint, right ankle. CLINICAL DATA: This is the patient's initial encounter. Patient reports that signs and symptoms have been present for 1 day and indicates a pain score of 5/10. MEDICAL/SURGICAL HISTORY: None. None. COMPARISON: No prior exams available for comparison. FINDINGS: No definite fractures, or dislocations are identified. No definite lytic or sclerotic lesion is seen . Soft tissue swelling is seen. CONCLUSION: Unremarkable study except for soft tissue swelling. Electronically signed by: Harini Pandya MD 02/07/2018 11:27 PM EDT
[2018-02-07 23:32] LABS: ALBUMIN 3.6 GM/DL (3.4-5.0); ALT (GPT) 51 U/L (12-78); AST (GOT) 38 U/L (15-37); BICARBONATE 29.1 MEQ/L (21.0-32.0); BLOOD UREA NITROGEN 9 MG/DL (7-18); CALCIUM 8.8 MG/DL (8.5-10.1); CHLORIDE 100 MEQ/L (98-107); CREATININE 0.99 MG/DL (0.60-1.30); GLOMERULAR FILTRATION RATE 83 ML/MIN (>89); GLUCOSE,RANDOM 79 MG/DL (74-106); SODIUM (NA) 137 MEQ/L (136-145)
[2018-02-07 23:34] LABS: ALKALINE PHOSPHATASE 84 U/L (45-117); TOTAL BILIRUBIN ADULT 0.7 MG/DL (0.2-1.0); TOTAL PROTEIN 8.3 GM/DL (6.4-8.2)
--- NOTE | 2018-02-08 00:12 | RADRPT ---
EXAM DATE: 02/07/2018 11:56 PM EDT AGE/SEX: 42 years / Male INDICATIONS: Left facial swelling. CLINICAL DATA: This is the patient's initial encounter. Patient reports that signs and symptoms have been present for 1 month and indicates a pain score of 5/10. MEDICAL/SURGICAL HISTORY: Hypertension. IV drug use. None. RADIATION DOSE: 29.28 CTDI (mGy) COMPARISON: No prior exams available for comparison. TECHNIQUE: Contiguous images in the axial and coronal planes were obtained using helical multirow de tector technique with 80 ml Omnipaque 350 (iohexol) nonionic water-soluble contrast as a single exam dose. Using automated exposure control and adjustment of the mA and/or kV according to patient size , radiation dose was kept as low as reasonably achievable to obtain optimal diagnostic quality images . FINDINGS: No definite fracture is identified for technique. Approximate 3.2 cm well-defined ovoid shaped low a ttenuating mass is present in the patient's left cheek anterior to the zygomatic arch. CONCLUSION: 1. Well-defined ovoid shaped low attenuating soft tissue mass in the left cheek area adjacent to the zygomatic arch of uncertain etiology could be sequelae of old trauma or possibly a benign cystic mas s. Malignant etiologies are difficult to exclude at this time, and not completely excluded. Electronically signed by: Harini Pandya MD 02/08/2018 12:11 AM EDT
[2018-02-08] MEDS ORDERED: KETOROLAC TROMETHAMINE 30 MG/ML (IVP) VIAL IV PUSH ONE (00:30)
[2018-02-08] MEDS ORDERED: TETANUS/DIPHTHERIA TOXOID ADULT 0.5 ML VIAL IM ONE (00:30)
[2018-02-08] MEDS ORDERED: TYLE325T PO (00:55)
[2018-02-08] MEDS ORDERED: BACT800T5 PO (00:55)
[2018-02-08 01:04] VITALS: BP 130/77; PULSE 84; RESP 15; O2SAT 99
== END 2018-02-08 02:23 | disposition home or self-care (01) ==
LOC: NEPD 21:22
DX: L03.115 Cellulitis of right lower limb (principal); F17.200 Nicotine dependence, unspecified, uncomplicated; Z23 Encounter for immunization
CPT/HCPCS: 70487; 73560; 73600; 80053; 83605; 85025; 90471; 90714; 96374; 96375; 99284; J1885; Q9967